=== PATIENT | male | born 1950 | race African-American/Black ===

== ENCOUNTER 2021-03-18 13:52 | Emergency (ER) | payer OTHER ==
[2021-03-18 14:39] VITALS: TEMP 98; BMI 31.5
[2021-03-18 15:11] LABS: BASO % 0.8 % (0-2.0); EOS % 1.5 % (0-4.5); HEMATOCRIT 39.4 % (35.4-49); HEMOGLOBIN 12.7 GM/dL (11.7-16.9); LYMPH % 13.3 % (8-40); MCHC 32.1 g/dl (32.0-35.9); MEAN CELL VOLUME 90.2 fl (80-96); MEAN PLT VOLUME 9.6 fl (7.5-11.1); MONO % 8.9 % (3.8-10.2); NEUT % 75.5 % (42.8-82.8); PLATELET COUNT 209 10^3/uL (134-434); RBC 4.37 M/mm3 (4.00-5.60); RDW 16.9 % (11.9-15.9); WHITE BLOOD COUNT 9.9 K/mm3 (4.0-10.0)
[2021-03-18 15:17] LABS: INR 2.18 (0.83-1.09); PROTHROMBIN TIME (PATIENT) 25.3 SEC (9.7-13.0)
[2021-03-18 15:20] LABS: ACTIVATED PTT 42.7 SECONDS (25.2-36.5)
[2021-03-18 15:30] LABS: CALCIUM 8.8 mg/dL (8.5-10.1)
[2021-03-18 15:31] LABS: ALBUMIN 3.2 g/dl (3.4-5.0); BLOOD UREA NITROGEN 20.4 mg/dL (7-18); MAGNESIUM 1.8 mg/dL (1.8-2.4)
[2021-03-18 15:34] LABS: CREATININE 1.1 mg/dL (0.55-1.3)
[2021-03-18 15:35] LABS: BILIRUBIN,TOTAL 1.2 mg/dL (0.2-1)
[2021-03-18 15:39] LABS: N-TERMINAL BNP 2735.9 pg/ml (5-125)
[2021-03-18] MEDS ORDERED: ATROPINE SULFATE 1 MG/10 ML DISP.SYRIN ONE (16:42)
[2021-03-18] MEDS ORDERED: ATROPINE SULFATE 1 MG/10 ML DISP.SYRIN IVPUSH ONE (16:44)
[2021-03-19 01:30] VITALS: BP 134/94; PULSE 71
== END 2021-03-19 01:34 | disposition short-term general hospital (02) ==
LOC: JER 13:52
PROC: 3E033NZ Introduction of Analgesics, Hypnotics, Sedatives into Peripheral Vein, Percutaneous Approach (ICD-10-PCS; principal; 2021-03-18)
DX: R94.39 Abnormal result of other cardiovascular function study (principal)
CPT/HCPCS: 36415; 71045-TC-FY; 80053; 82550; 83735; 83880; 84443; 84484; 85025; 85610; 85730; 86850; 86900; 86901; 93005; 93010; 99284-25; C9803; U0003; U0005